=== PATIENT | female | born 1930 | race Caucasian/White ===

== ENCOUNTER 2016-10-16 19:23 | Emergency (ER) | payer MEDICARE, BC ==
--- NOTE | 2016-10-16 19:37 | EDM.PDOC ---
ED HPI GENERAL MEDICAL PROBLEM - General Chief Complaint: Lower Extremity Injury/Pain Stated Complaint: right foot injury Time Seen by Provider: 10/16/16 19:31 Source of Information: Reports: Patient, Family History Limitations: Reports: No Limitations - History of Present Illness INITIAL COMMENTS - FREE TEXT/NARRATIVE: Patient comes in with pain to her right foot. She states that she fell while putting on her shoes. She can't remember if she twisted her foot or landed on it. She denies confusion, headache, LOC, dizziness, or any other complaints. Her only complaint is side pain to her right foot with a history of arthritis. 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 Trauma Exam - Physical Exam Exam: See Below Exam Limited By: No Limitations General Appearance: Reports: Alert, WD/WN, Mild Distress Head: Reports: Atraumatic, Normocephalic Eyes: Bilateral Eye: EOMI, PERRL Respiratory Exam: Reports: No Respiratory Distress, Lungs Clear, Normal Breath Sounds, No Accessory Muscle Use, Chest Non-Tender Cardiovascular: Reports: Normal Peripheral Pulses, Regular Rate, Rhythm GI/Abdominal: Reports: Normal Bowel Sounds, Soft, Non-Tender, No Organomegaly Extremities: Pain with Movement, Pedal Edema (bilateral pedal edema 2-3+), Other (right foot has no visible joint or foot effusion. 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 As Tested, No Motor/Sensory Deficits, Alert , Normal Mood/Affect, Oriented x 3 Skin: Reports: Normal Color, Warm/Dry - [place] Coma Score Best Eye Response ([place]): (4) Open Spontaneously Best Verbal Response ([place]): (5) Oriented Best Motor Response ([place]): (6) Obeys Commands Course - Orders/Labs/Meds Orders: Active Orders 24 hr Category Date Time Status Foot Comp Min 3V Rt [CR] Stat Exams 10/16/16 19:31 Ordered - Re-Assessments/Exams Free Text/Narrative Re-Assessment/Exam: 10/16/16 19:37 x-ray of foot has been ordered 10/16/16 20:21 x-ray reviewed, non displaced 5th metatarsal base fracture Departure - Departure Time of Disposition: 20:40 Disposition: Home, Self-Care 01 Condition: good Clinical Impression: Closed fracture of fifth metatarsal bone of right foot - Discharge Information Instructions: Metatarsal Fracture Additional Instructions: Make an appointment with Dr. Weiss as soon as possible to have possible orthopedic referral for surgical repair. I did prescribe some hydrocodone for pain management. Keep your splint clean and dry. Do not get wet. Your foot may become more painful tomorrow so take your medications as prescribed. Elevate and ice your foot. Please contact us if you have any questions or concerns. - My Orders Last 24 Hours: My Active Orders 10/16/16 19:31 Foot Comp Min 3V Rt [CR] Stat - Assessment/Plan Last 24 Hours: My Active Orders 10/16/16 19:31 Foot Comp Min 3V Rt [CR] Stat
[2016-10-16 19:45] VITALS: BP 180/74
[2016-10-16] MEDS ORDERED: Take Home: Acetaminophen/HYDROcodone 325-5 MG, 5 Tab Pack PO ONE (20:25)
== END 2016-10-16 20:40 | disposition home or self-care (01) ==
LOC: VM.ED 19:23
DX: S92.354A Nondisplaced fracture of fifth metatarsal bone, right foot, initial encounter for closed fracture (principal); Z79.899 Other long term (current) drug therapy; W19.XXXA Unspecified fall, initial encounter
CPT/HCPCS: 29515; 73630; 99283; A9270

== ENCOUNTER 2016-11-23 10:07 | Inpatient (IN) | payer MEDICARE, BC ==
[2016-11-23] MEDS ORDERED: Sodium Chloride 0.9% 10 ML Syringe FLUSH PRN (11:54)
[2016-11-23] MEDS ORDERED: Sodium Chloride 0.9% 1,000 ML IV ONE (11:54)
[2016-11-23] MEDS ORDERED: Iopamidol 612 MG/ML 100 ML Bottle IVPUSH ONE (13:12)
[2016-11-23] MEDS ORDERED: Sodium Chloride 0.9% 100 ML IV SCH (13:15)
[2016-11-23] MEDS ORDERED: Dicyclomine 10 MG Cap PO PRN (16:30)
[2016-11-23] MEDS ORDERED: Enoxaparin 30 MG/0.3 ML Syringe SUBCUT SCH ×2 (16:30→20:00)
[2016-11-23] MEDS ORDERED: Ibuprofen 200 MG Tab PO PRN (16:34)
[2016-11-23] MEDS: Aspirin 81 MG Tab.Chew PO SCH (16:39)
--- NOTE | 2016-11-23 17:29 | HP ---
REASON FOR ADMISSION: Hyponatremia. HISTORY OF PRESENT ILLNESS: An 85-year-old, white female presents ambulatory to the emergency room complaining of left lower quadrant abdominal pain of 3 days duration. It is a fairly constant pain. It does get sharp at times. She rates the pain at 5/10. She has not been eating well in the past several days because of the pain. She did have a little bit of loose stools for the last two mornings; otherwise she needs to use a laxative to have her bowels move and it is not regular at all. The pain seems to get worse when she uses no nausea, vomiting, no fever, or chills. No urinary symptoms. She has had a history of low sodium in the past, but she states not this low. PAST MEDICAL HISTORY: Hypertension, macular degeneration, chronic diastolic congestive heart failure, valvular heart disease, GERD, diverticulosis, osteoporosis, and hyponatremia. MEDICATIONS: Calcium with vitamin D3 600 mg b.i.d., Prolia 60 mg subcu q.6 months, ibuprofen p.r.n., aspirin 81 mg daily, beta-carotene 1 b.i.d., MiraLAX 17gms daily, lisinopril 10mg daily, HCTZ 25 mg daily, and Bentyl 10 mg q.i.d. p.r.n. ALLERGIES: None known. REVIEW OF SYSTEMS: She denies headache. No chest pain. No shortness of breath. No cold symptoms. No weakness, does not feel dizzy or lightheaded, The patient does live alone in the [place] apartment. PHYSICAL EXAMINATION: General: She is alert. She is afebrile. Vital Signs: Pulse 71, blood pressure is 130/77, respirations are 16, and O2 sats 95% on room air. TMs are negative. Throat clear. Neck: Supple. No adenopathy noted. Heart: Regular rate and rhythm. Lungs: Clear to auscultation. Abdomen: Soft. There is some mild tenderness in the left lower quadrant. No rebound or guarding noted. No hepatosplenomegaly noted. Extremities: 1+ pitting edema bilaterally. They are warm and dry. She moves all 4 extremities without problems. LABORATORY DATA: White count 9.4, hemoglobin 12.9, and INR 1.0. Sodium 126 and other electrolytes are unremarkable. Chloride is low at 91, creatinine 0.9, glucose 105, and LFTs are normal. C-reactive protein 0.2. Urinalysis unremarkable. Serum osmolality, urine osmolality, and urine sodium are pending. X-rays: Abdominal x-rays are showing nonobstructive bowel pattern. CT scan of abdomen and pelvis, left lower quadrant pain are concerning for diverticulitis, showed diverticulosis, but no evidence of diverticulitis and there was no acute abdominal pelvic process noted. ASSESSMENT: 1. Hyponatremia. 2. Abdominal pain with history of diverticulosis monitored for diverticulitis. PLAN: The patient is admitted to acute care status for treatment of hyponatremia. She will be placed on a 1200 mL fluid restrictions. She was given normal saline 1 L in the ER, but this should be placed on just to Saline lock at this time. We will place her on a clear liquid diet for now and continue her home medications except for the calcium Prolia and beta-carotene. We will also discontinue the HCTZ that can contribute to hyponatremia. Repeat lab in the morning. She identifies Dr. Weiss as her primary provider. FM: 11/23/2016 16:41:11 MODL: 11/23/2016 17:25:59 /[id number]
[2016-11-23] MEDS ORDERED: Polyethylene Glycol 3350 Powder 17 GM Packet PO SCH (20:00)
[2016-11-24 06:17] VITALS: BP 132/71
[2016-11-24] MEDS: Aspirin 81 MG Tab.Chew PO SCH (07:35)
[2016-11-24 07:44] LABS: CHLORIDE,CL 101 mmol/L (98-107); SODIUM,NA 135 mmol/L (136-145)
[2016-11-24] MEDS ORDERED: Lisinopril 10 MG Tab PO SCH (08:00)
--- NOTE | 2016-11-24 11:37 | PN ---
Progress Note for SHAHBAZ ERNST Date: 11/24/2016 Room #: VM.212 SUBJECTIVE: An 85-year-old white female, admitted yesterday with left lower quadrant abdominal pain and hyponatremia. She was placed on clear liquids and fluid restriction yesterday. She had no evidence of diverticulitis. She is feeling much better today. The abdominal pain is pretty much resolved. She is feeling hungry. She has no other complaints. OBJECTIVE: General: She is alert. She is afebrile. Vital Signs: Pulse is 65, blood pressure is 132/71, respirations 12, and O2 sats 96% on room air. Heart: Regular rate and rhythm. LUNGS: Clear to auscultation. Abdomen: Soft, has very minimal tenderness in the left lower quadrant. No masses. No rebound. No guarding. LABORATORY DATA: White count 6.1, hemoglobin 12.5. Sodium is 135 as compared to 126 yesterday. Creatinine is normal. ASSESSMENT: 1. Hyponatremia - resolved. 2. Left lower quadrant abdominal pain, markedly improved to resolved. Possibly related to irritable bowel syndrome. PLAN: The patient is reassured to advance diet to regular diet today. She tolerates this without significant problem. She could be discharged. Continue fluid restriction but liberalize to 1800 mL since 24 hours. Encourage ambulation. Continue to monitor her condition. FM: 11/24/2016 09:19:59 MODL: 11/24/2016 11:28:43 /[id number]
--- NOTE | 2016-11-24 20:52 | DISCH ---
FINAL DIAGNOSES: 1. Hyponatremia - resolved. 2. Left lower quadrant abdominal pain - resolved. 3. Abdominal pain, possibly related to irritable bowel. No evidence of diverticulitis. HISTORY: This 85-year-old white female presented to the emergency room on the day of admission with several-day history of left lower quadrant abdominal pain. She has a history of diverticulosis. She has concern for diverticulitis. She was found to have significant hyponatremia with a sodium of 126. She was subsequently admitted for management. PHYSICAL EXAMINATION: She had tenderness of left lower quadrant without rebound, guarding, or masses noted. LABORATORY DATA: White count 9.4 and hemoglobin 12.9. Initial sodium was 126 and today is 135, creatinine stable at 0.9. Electrolytes are normal. Urinalysis unremarkable. Plain x-ray is unremarkable. CT scan abdomen and pelvis showed no evidence of diverticulitis. There are no masses and no acute intraabdominal or pelvic processes. HOSPITAL COURSE: The patient was admitted and placed on a fluid restriction of 1200 mL. She will be given some IV fluids in the emergency room. She was placed on clear liquids. Condition was monitored. By the next morning, her hyponatremia had resolved. Abdominal pain had pretty much resolved. She was placed on a regular diet, which she tolerated without any recurrent pain and she was felt stable for discharge. CONDITION ON DISCHARGE: Improved. DISCHARGE MEDICATIONS: Aspirin 81 mg daily, Bentyl 10 mg q.i.d. p.r.n., ibuprofen p.r.n., lisinopril 10 mg daily, MiraLax 17 g daily, simethicone t.i.d. p.r.n., calcium with vitamin D b.i.d., Prolia 60 mg daily, and beta-carotene 1 b.i.d. Her hydrochlorothiazide has been discontinued. FOLLOWUP: The patient was advised to see Dr. Weiss in 1 week and to have a repeat sodium level done at that time. FM: 11/24/2016 14:50:11 MODL: 11/24/2016 20:44:27 /[id number]
--- NOTE | 2016-11-27 03:08 | ER ---
Date of Service: 11/23/2016 SUBJECTIVE: Nilda presents to the emergency room with complaints of left lower quadrant abdominal pain x3 days. She states that the discomfort is present at all times, but she has episodes where the discomfort gets worse. She states that she has experienced some intermittent diarrhea over the past several days. She states that she does have a history of chronic constipation and diverticulitis in the past. She states that she has not been experiencing any fever or chills and denies any blood in her stools. PAST MEDICAL HISTORY: 1. Chronic constipation. 2. Diverticulosis and diverticulitis. 3. History of hyponatremia. 4. Osteoporosis. 5. CHF. 6. Hypertension. 7. Macular degeneration. 8. Valvular heart disease. MEDICATIONS: Please see nurse's notes. ALLERGIES: NKDA. REVIEW OF SYSTEMS: General: No fever or chills. HEENT: No sore throat, rhinorrhea, congestion, or headache. Cardiac: Denies any substernal chest pain. Respiratory: No shortness of breath. GI: Please see history of present illness. She denies any melena, hematochezia, or hematemesis. : Denies any dysuria. Musculoskeletal: No myalgias or arthralgias. Neurologic: No fainting, blackouts, or lightheadedness. PHYSICAL EXAMINATION: General: This is an 85-year-old female patient who is in no acute distress. Vital Signs: Heart rate 71, blood pressure is 130/77, respiratory rate 16, O2 saturation 95% on room air. Skin: Warm, pink, and dry. HEENT: Head is normocephalic, atraumatic. Eyes, PERRLA. Extraocular intact. Mouth, oral mucosa is moist. Lungs: Clear to auscultation. Heart: Regular rate and rhythm. Abdomen: Soft, tender in the left lower quadrant. There is no masses noted. There is no hepatosplenomegaly noted. Extremities: Without edema. Neurologic: She is alert, oriented, answers all questions appropriately. Her speech is fluent. Her gait is within normal limits. LABORATORY DATA: WBCs 9.4, hemoglobin is 12.9, platelets are 307. PT is 10.9, INR is 1.0. Sodium is 126, potassium is 4.2, chloride is 91, bicarb is 24, BUN is 15, creatinine is 0.9. Creatinine clearance is 35.4. GFR is 59. Glucose is 105. Calcium is 8.6. Corrected calcium is 8.76. Total bilirubin is 1.6. AST is 20, ALT is 20, alkaline phosphatase is 59. CRP is 0.2, albumin is 3.8. Urinalysis was obtained and was all noted to be within normal limits other than a trace of lysed blood cells. Radiographic data at time of admission, CT abdomen and pelvis with IV contrast was pending. EMERGENCY ROOM COURSE: The patient was started on normal saline and was given 250 mL of fluid bolus here in the emergency room. She remained stable while in my care. ASSESSMENT: 1. Left lower quadrant abdominal pain, likely secondary to diverticulitis. 2. Hyponatremia. PLAN: I did speak with Dr. Merrill Burdick regarding admission for this patient. The patient will be admitted acutely. All questions were answered. MWK: 11/26/2016 23:47:01 MODL: 11/27/2016 03:03:19 /[id number]
== END 2016-11-24 15:10 | disposition home or self-care (01) | DRG 641 ==
LOC: VM.ED 10:07 → VM.MS 14:08
PROVIDERS: ADMIT Family Medicine; ATTEND Family Medicine
DX: E87.1 Hypo-osmolality and hyponatremia (principal); I50.32 Chronic diastolic (congestive) heart failure; I38 Endocarditis, valve unspecified; I11.0 Hypertensive heart disease with heart failure; K21.9 Gastro-esophageal reflux disease without esophagitis; K57.90 Diverticulosis of intestine, part unspecified, without perforation or abscess without bleeding; M81.0 Age-related osteoporosis without current pathological fracture; H35.30 Unspecified macular degeneration; K58.9 Irritable bowel syndrome, unspecified; R10.32 Left lower quadrant pain; Z79.82 Long term (current) use of aspirin; Z79.899 Other long term (current) drug therapy
CPT/HCPCS: 36415; 74020; 74177; 80053; 81001; 83930; 83935; 84300; 85025; 85610; 86140; 96360; 99284; 99285; J7030; J7050; Q9967; 80048; A9270-GY; J1650